=== PATIENT | male | born 1965 | race Caucasian/White ===

== ENCOUNTER → 2023-04-11 12:31 | Outpatient (CLI) | payer OTHER, SELFPAY ==
--- NOTE | 2023-04-11 12:38 | DI.RAD.S_ITS ---
PROCEDURE: XR KNEE RT 3V INDICATIONS: bilateral knee pain TECHNIQUE: 3 views of the knee were acquired. COMPARISON: [facility], CR, XR KNEE LT 3V, 04/11/2023, 12:44. FINDINGS: Bones: Small focus of fragmentation is present at the superior aspect of the patella. Focus of intramedullary calcification is present within the proximal fibular shaft. Mild tricompartmental degenerative narrowing. Soft tissues: Syin-[id number]-[id number] joint effusion. No suspicious soft tissue calcifications. IMPRESSION: Mild to moderate effusion. Small fragmentation at the superior aspect of the patella. It is noted to be present on the contralateral side as well. This could represent a small fractured osteophyte, injury of indeterminate age or degenerative sequela. Proximal fibular calcification. This could represent sequela prior trauma or potentially lesion such as enchondroma. Recommend correlation to clinical history and point tenderness. Dictated by: Iris Rooney M.D. on 04/11/2023 at 15:07 Approved by: Iris Rooney M.D. on 04/11/2023 at 15:14
--- NOTE | 2023-04-11 12:39 | DI.RAD.S_ITS ---
PROCEDURE: XR KNEE LT 3V INDICATIONS: bilateral knee pain TECHNIQUE: 3 views of the knee were acquired. COMPARISON: None. FINDINGS: Bones: Small ossification is present adjacent to the superior aspect of the patella. Lateral patellar subluxation. Linear calcification is noted adjacent to the proximal fibula. Soft tissues: Faig-bp-[id number] joint effusion. No suspicious soft tissue calcifications. IMPRESSION: Mild to moderate effusion. Small ossification is present along the superior aspect of the patella. It is noted to be present on the contralateral side as well. This could represent a small fractured osteophyte, injury of indeterminate age or degenerative sequela. Linear calcification adjacent to the proximal fibula. This may represent area of dystrophic calcifications or avulsion injury of indeterminate age. Dictated by: Iris Rooney M.D. on 04/11/2023 at 15:14 Approved by: Iris Rooney M.D. on 04/11/2023 at 16:01
== END ==
PROVIDERS: PCP Internal Medicine; Referring Provider Internal Medicine; Visit Provider Internal Medicine
DX: M13.869 Other specified arthritis, unspecified knee (principal); M25.462 Effusion, left knee; M25.461 Effusion, right knee
CPT/HCPCS: 73562